=== PATIENT | female | born 1990 | race Caucasian/White ===

== ENCOUNTER 2024-09-20 06:18 | Day surgery (SDC) | payer BC, SELFPAY ==
[2024-09-20 09:39] VITALS: BP 145/74
[2024-09-20 09:41] VITALS: BMI 48.1
[2024-09-20 11:12] VITALS: BP 119/65
[2024-09-20 11:15] VITALS: BP 109/68
[2024-09-20 11:30] VITALS: BP 111/49
== END 2024-09-20 11:45 | disposition home or self-care (01) ==
LOC: GI 06:18
PROVIDERS: ATTENDING PHYSICIAN Internal Medicine Gastroenterology
DX: D50.9 Iron deficiency anemia, unspecified (principal); K22.89 Other specified disease of esophagus; K44.9 Diaphragmatic hernia without obstruction or gangrene
CPT/HCPCS: 45380; 43239; 88305; 88342